=== PATIENT | male | born 1985 | race Caucasian/White ===

== ENCOUNTER → 2022-03-28 | Outpatient (CLI) | payer OTHER ==
[2022-03-28 13:28] LABS: PERCENT SATURATION 33.8 % (19.7-50.0)
[2022-03-30 00:07] LABS: ANTINUCLEAR ANTIBODIES DIRECT Negative (Negative); CERULOPLASMIN 20.8 mg/dL (16.0-31.0); HEPATITIS A IgG TOTAL Positive (Negative); HEPATITIS B CORE ANTIBODY IGG Negative (Negative)
== END ==
LOC: M WUC 10:48
PROVIDERS: ATTEND Internal Medicine Infectious Disease
DX: R79.89 Other specified abnormal findings of blood chemistry (principal)